=== PATIENT | male | born 1985 | race Caucasian/White ===

== ENCOUNTER 2018-11-13 20:45 | Emergency (ER) | payer OTHER ==
[2018-11-13] MEDS: SOD CHLORIDE 0.9% 1,000 ML IV ×2 (22:18)
[2018-11-13] MEDS: NALOXONE 2 MG SYG IV (22:19)
[2018-11-13 22:25] LABS: ADD MAN DIFF? NO
[2018-11-13 22:28] LABS: WHITE BLOOD COUNT 15.5 10^3/ul (4.8-10.8)
[2018-11-13 22:28] LABS: BASOPHIL # 0.1 10^3/ul (0.0-0.1); BASOPHILS % 0.4 % (0.0-2.0); EOSINOPHILS % 0.2 % (0.0-7.0); HEMATOCRIT 41.2 % (42.0-52.0); HEMOGLOBIN 14.5 g/dl (14.0-18.0); LYMPHOCYTES # 1.1 10^3/ul (0.8-2.9); MEAN CORPUSCULAR HEMOGLOBIN 32.8 pg (29.0-33.0); MEAN CORPUSCULAR HGB CONC 35.2 g/dl (32.0-37.0); MEAN CORPUSCULAR VOLUME 93.2 fl (82.0-101.0); MEAN PLATELET VOLUME 10.4 fl (7.4-10.4); MONOCYTES % 6.3 % (0.0-11.0); NEUTROPHIL # 13.2 10^3/ul (1.6-7.5); NEUTROPHILS % 85.3 % (39.0-77.0); PLATELET COUNT 215 10^3/UL (140-415); RED BLOOD COUNT 4.42 10^6/ul (4.70-6.10); RED CELL DISTRIBUTION WIDTH 11.9 % (11.5-14.5)
[2018-11-13 22:43] LABS: ANION GAP 17 (5-13); BLOOD UREA NITROGEN 15 mg/dl (7-20); CALCIUM 10.1 mg/dl (8.4-10.2); CARBON DIOXIDE 20 mmol/L (21-31); CHLORIDE 104 mmol/L (97-110); CREATININE 1.31 mg/dl (0.61-1.24); Estimated GFR > 60 mL/min (>60); GLUCOSE 92 mg/dl (70-220); POTASSIUM 4.4 mmol/L (3.5-5.1); SODIUM 141 mmol/L (135-144)
== END 2018-11-14 01:01 | disposition home or self-care (01) ==
LOC: E/R 11-14 01:01
DX: Z02.89 Encounter for other administrative examinations (principal); R40.0 Somnolence
CPT/HCPCS: 80048; 85025; 96374; 99284-25